=== PATIENT | male | born 1970 | race Caucasian/White ===

== ENCOUNTER → 2019-11-03 | Outpatient (CLI) | payer OTHER ==
--- NOTE | 2019-11-03 16:45 | Diagnostic Imaging Report ---
INDICATION: Cabinet fell on foot 3 weeks ago with more recent trauma to foot 1 week ago.. TECHNIQUE: 3 views of the right foot CORRELATION STUDY: None FINDINGS: The osseous structures of the foot are intact. Joint spaces are maintained. Mild asymmetric hypertrophy lateral sesamoid bone compared to the medial sesamoid bone is Alignment anatomic. Prominent soft tissue edema particularly along the dorsal aspect of foot. Prominent plantar heel spur. IMPRESSION: 1. Negative for acute findings of the foot. Dorsal soft tissue swelling. Dictated by: Dictated on workstation # [id number]
== END ==
LOC: RAD FS 16:22
PROVIDERS: ATTEND Nurse Practitioner Family
DX: S91.331A Puncture wound without foreign body, right foot, initial encounter (principal); W19.XXXA Unspecified fall, initial encounter
CPT/HCPCS: 73630

== ENCOUNTER → 2020-05-10 | Outpatient (CLI) | payer OTHER ==
--- NOTE | 2020-05-10 10:21 | Diagnostic Imaging Report ---
CLINICAL INDICATIONS: Patient has chronic sinusitis. EXAM: Axial CT scan of the maxillofacial structures without IV contrast . Coronal and sagittal reformations were performed. Auto Exposure Controls were utilized during the CT exam to meet ALARA standards for radiation dose reduction. COMPARISON: None. FINDINGS: PARANASAL SINUSES: FRONTAL: Unremarkable. ETHMOID: There is minimal mucosal thickening predominantly on the left side. MAXILLARY: There is minimal mucosal thickening involving both maxillary sinuses. SPHENOID: There is minimal mucosal thickening anteriorly. OTHER PARANASAL SINUS FINDINGS: None. NASAL SEPTUM: Nasal septum is tortuous, demonstrates 4 mm of rightward nasal septal deviation anteriorly and 3 mm leftward nasal septal deviation involving the midportion. There is also a 4 mm leftward directed nasal septal bony spur in the midportion. VISUALIZED TEMPORAL BONE STRUCTURES: Unremarkable. BONY STRUCTURES: There is chronic appearing bony deformity of the nasal bone which is deviated toward the left anteriorly. EXTRACRANIAL SOFT TISSUE/ ORBITS: Unremarkable. IMPRESSION: 1: There is minimal paranasal sinus disease. 2: Tortuous nasal septum is seen including a leftward directed nasal septal bony spur. 3: There is chronic appearing bony deformity involving the nasal bone. Dictated by: Dictated on workstation # [id number]
== END ==
LOC: RAD FS 09:36
PROVIDERS: ATTEND Otolaryngology Otolaryngology/Facial Plastic Surgery
DX: J32.8 Other chronic sinusitis (principal); J34.2 Deviated nasal septum
CPT/HCPCS: 70486

== ENCOUNTER 2020-12-11 09:06 | Emergency (ER) | payer OTHER ==
[~2020-12-11] VITALS: Ht 187.9 cm; Wt 130.6 kg
--- NOTE | 2020-12-11 09:12 | ED Upper Extremity ---
General Chief Complaint: Laceration Stated Complaint: WC LT HAND INJ Source: patient Exam Limitations: no limitations History of Present Illness Date Seen by Provider: Dec 11, 2020 Time Seen by Provider: 09:10 Initial Comments 50 y/o presents with work related injury- left hand crushed in a machine. Pain and cut to back of left hand. Denies other injury. Last tetanus > 5yrs. Allergies and Home Medications Allergies Coded Allergies: erythromycin base (Verified Allergy, Unknown, 12/11/20) Home Medications Amoxicillin 500 Mg Capsule, 500 MG PO TID Prescribed by: MARYLOU GATES on 12/11/20 0955 Hydrocodone/Acetaminophen 1 Each Tablet, 1 EACH PO Q4H PRN for PAIN-MODERATE (5- 7) Prescribed by: MARYLOU GATES on 12/11/20 0956 Ibuprofen 800 Mg Tablet, 800 MG PO Q8H PRN for PAIN Prescribed by: MARYLOU GATES on 12/11/20 0955 Patient Home Medication List Home Medication List Reviewed: Yes Review of Systems Constitutional: No dizziness, No fever, No malaise, No weakness Musculoskeletal: see HPI, other (Pain left hand, cut to back of hand. ) Skin: see HPI, other (laceration left hand) Psychiatric/Neurological: Denies Numbness, Denies Paresthesia Past Hfdmcuv-Tooxeh-Nfllox Hx Patient Social History Tobacco Use?: Yes Alcohol Use?: Yes Physical Exam Vital Signs Vital Signs - First Documented 12/11/20 09:13 Temp 35.2 Pulse 109 Resp 18 B/P (MAP) 167/106 (126) Pulse Ox 95 O2 Delivery Room Air Capillary Refill : Height, Weight, BMI Height: '" Weight: lbs. oz. kg; BMI Method: General Appearance: WD/WN, no apparent distress Back: normal inspection, no CVA tenderness, no vertebral tenderness Shoulder: normal inspection, non-tender, no evidence of injury, normal ROM Elbow/Forearm: normal inspection, non-tender, no evidence of injury, normal ROM, Left Wrist: Yes normal inspection, Yes non-tender, Yes no evidence of injury, Yes normal ROM Hand: Left, bone tenderness, limited ROM (but able to make a fist and fingers align appropriately), soft tissue tenderness, swelling Neurologic/Tendon: normal motor functions, normal tendon functions, responds to pain, no evidence tendon injury Neurologic/Psychiatric: alert, normal mood/affect Skin: normal color, warm/dry, other (laceration dorsum left hand) Procedures/Interventions Wound Location: Upper Extremities Wound Length (cm): 6 Wound's Depth, Shape: irregular, stellate, contused tissue Wound Explored: clean Irrigated w/ Saline (ccs): 200 Anesthesia: 1% Lidocaine Volume Anesthetic (ccs): 8 Wound Debrided: minimal Suture: Monocryl Suture Size: 3-0 Number of Sutures: 8 Sterile Dressing Applied?: Yes Progress manual scrub w wound cleanser and moderate irrigation. No FB or wound contamination observed. Progress/Results/Core Measures Results/Orders My Orders Orders - MARYLOU GATES DO Hand 3 View Left (12/11/20 09:14) Lidocaine 1% Inj 20 Ml (Xylocaine 1% Inj (12/11/20 09:15) Bacitracin Ointment (Bacitracin Ointment (12/11/20 09:15) Dipht,Pertuss(Acell),Tet Adult (Boostrix (12/11/20 09:15) Lidocaine 1% Inj 20 Ml (Xylocaine 1% Inj (12/11/20 09:13) Medications Given in ED Current Medications Medications Dose Ordered Sig/Eliseo Route Start Time Stop Time Status Last Admin Dose Admin Diphtheria/ Tetanus/Acell Pertussis 0.5 ml ONCE ONCE IM 12/11/20 09:15 12/11/20 09:16 DC 12/11/20 09:24 0.5 ML Lidocaine HCl 20 ml ONCE ONCE INJ 12/11/20 09:15 12/11/20 09:16 DC 12/11/20 09:24 5 ML Vital Signs/I&O 12/11/20 09:13 Temp 35.2 Pulse 109 Resp 18 B/P (MAP) 167/106 (126) Pulse Ox 95 O2 Delivery Room Air Diagnostic Imaging Diagonstic Imaging: Xray Plain Films/CT/US/NM/MRI: hand Comments Date of Exam:12/11/20 HAND 3 VIEW LEFT INDICATION: Pain and laceration left hand, injury. TECHNIQUE: Three views of the left hand. CORRELATION STUDY: None FINDINGS: There is normal alignment and appearance of the osseous structures of the hand. The joint spaces are maintained. There is no acute fracture. Findings compatible with previous fracture deformity of the 5th metacarpal. Soft tissue defect, laceration along the dorsal aspect of the hand. No soft tissue foreign body. IMPRESSION: 1. Soft tissue laceration dorsal aspect the hand. No definitive foreign body or acute bony abnormality. Dictated on workstation # [id number] Dict: 12/11/2050 Trans: 12/11/2052 DO [id number] Interpreted by: BELINDA LÓPEZ DO Electronically signed by: Departure Impression Primary Impression: Crush injury of hand Qualified Codes: S67.22XA - Crushing injury of left hand, initial encounter Additional Impression: Laceration of hand Qualified Codes: S61.412A - Laceration without foreign body of left hand, initial encounter Disposition: 01 HOME, SELF-CARE Condition: Improved Departure-Patient Inst. Decision time for Depature: 09:54 Referrals: CLAUDIA WAYNE MD (PCP/Family) Primary Care Physician Patient Instructions: Contusion (DC), Laceration Repair With Stitches (DC) Add. Discharge Instructions: Follow up with Occupational Health/ Worker's Comp clinic in 2 days for wound check and further disposition. Have your stitches removed no sooner than 2 weeks. Elevate and apply ice to your hand several times daily for 15-20 minutes at a time. Seek medical care promptly for any sign of infection: increased pain, redness, swelling or wound drainage All discharge instructions reviewed with patient and/or family. Voiced understanding. Scripts Ibuprofen (Ibuprofen) 800 Mg Tablet 800 MG PO Q8H PRN for PAIN, #30 TAB 0 Refills Prov: MARYLOU GATES DO 12/11/20 Hydrocodone/Acetaminophen (Hydrocodone-Acetamin 5-325 mg) 1 Each Tablet 1 EACH PO Q4H PRN for PAIN-MODERATE (5-7), #10 TAB Prov: MARYLOU GATES DO 12/11/20 Amoxicillin (Amoxicillin) 500 Mg Capsule 500 MG PO TID, #15 CAP 0 Refills Prov: MARYLOU GATES DO 12/11/20 MARYLOU GATES DO Dec 11, 2020 09:12
[2020-12-11 09:13] VITALS: BP 167/106
[2020-12-11] MEDS ORDERED: LIDOCAINE 1% INJ 20 ML 20 ML VIAL ONE (09:13)
[2020-12-11] MEDS ORDERED: TETANUS,DIPTH,PERTUSS P/F (BOOSTRIX) 0.5 ML VIAL IM ONE (09:15)
[2020-12-11] MEDS ORDERED: LIDOCAINE 1% INJ 20 ML 20 ML VIAL INJ ONE (09:15)
[2020-12-11] MEDS ORDERED: BACITRACIN OINTMENT 28 GM TUBE TOP SCH (09:15)
--- NOTE | 2020-12-11 09:52 | Diagnostic Imaging Report ---
INDICATION: Pain and laceration left hand, injury. TECHNIQUE: Three views of the left hand. CORRELATION STUDY: None FINDINGS: There is normal alignment and appearance of the osseous structures of the hand. The joint spaces are maintained. There is no acute fracture. Findings compatible with previous fracture deformity of the 5th metacarpal. Soft tissue defect, laceration along the dorsal aspect of the hand. No soft tissue foreign body. IMPRESSION: 1. Soft tissue laceration dorsal aspect the hand. No definitive foreign body or acute bony abnormality. Dictated by: Dictated on workstation # [id number]
[2020-12-11] MEDS ORDERED: ACHD5005 PO (09:55)
[2020-12-11] MEDS ORDERED: IBUP-1780 PO (09:55)
[2020-12-11] MEDS ORDERED: AMOX500C2 PO (09:55)
--- OUTSIDE RECORDS SUMMARY | 2020-12-11 10:35 | XMS REPORT | Clinical Summary ---
Author Author [facility] Organization [facility] Address Unknown Phone Unavailable Care Team Providers Care Financial Sales Professional Name Role Phone Goyo Srinivasan MD PCP Shayan Pedersen MD Unavailable Source Comments Some departments are not documenting in the electronic medical record. If you d o not see the information that you expected, contact Release of Information in [facility] Health Information Management department at [phone] for further assistan ce in locating additional records.[facility] Allergies Comments Active Allergy Reactions Severity Noted Date Pt states he had a reaction to it as a child. Erythromycin UNKNOWN 07/23/2010 Medications End Date Status Medication Sig Dispensed Refills Start Date Active ESOMEPRAZOLE MAG Take 20 mg by 0 TRIHYDRATE (NEXIUM PO) mouth daily. Active CYCLOBENZAPRINE HCL Take 1 Tab by 0 (FLEXERIL PO) mouth three times daily. Active oxycodone/acetaminophen Take 1-2 Tabs 120 Tab 0 (PERCOCET) 5/325 mg PO by mouth 1 tablet every 4 hours as needed for Pain. Active docusate (COLACE) 100 mg Take 1 Cap by 40 Cap 1 PO capsule mouth twice 1 daily as needed for Constipation. Active hydrocodone/acetaminophen Take 1 Tab by 0 (+) (VICODIN) 10/325 mg mouth every 8 PO tablet hours. Active Testosterone (ANDROGEL) 1 Apply to top 0 % (25 mg/2.5 g) TD GlPk of skin as directed daily. Active ibuprofen (MOTRIN) 800 mg Take 800 mg 0 PO tablet by mouth every 8 hours. Active Problems Not on file Social History Date Tobacco Use Types Packs/Day Years Used Quit: 04/26/2007 Former Smoker Cigarettes 1 12 Smokeless Tobacco: Current User Comments Alcohol Use Standard Drinks/Week Yes 12 (1 standard drink = 0.6 oz pure alcohol) Sex Assigned at Date Recorded Not on file Last Filed Vital Signs Reading Time Taken Comments Vital Sign 139/89 07/24/2010 8:15 AM CDT Blood Pressure 112 07/24/2010 8:15 AM CDT Pulse 36.8 C (98.3 F) 07/24/2010 8:15 AM CDT Temperature - - Respiratory Rate 93% 07/24/2010 8:15 AM CDT Oxygen Saturation - - Inhaled Oxygen Concentration 117.9 kg (260 lb) 07/23/2010 9:22 AM CDT Weight 185.4 cm (6' 1") 07/23/2010 9:22 AM CDT Height 34.3 07/23/2010 9:22 AM CDT Body Mass Index Plan of Treatment Health Maintenance Due Date Last Done Comments HIV SCREENING 07/07/1986 DTAP/TDAP VACCINES (1 - 07/07/1989 Tdap) HEPATITIS C SCREENING 07/07/1989 PHYSICAL (COMPREHENSIVE) 07/07/1989 EXAM INFLUENZA VACCINE 01/24/2021 Results Not on filefrom Last 3 Months Advance Directives Date Inactivated Comments Code Status Date Activated 07/25/2010 5:33 AM Full Code 07/23/2010 5:25 PM Provider has discussed Code Status Yes w/Patient or Family?
== END 2020-12-11 10:00 | disposition home or self-care (01) ==
LOC: EDUNIT# 09:06 → ER FS 09:10
DX: S67.22XA Crushing injury of left hand, initial encounter (principal); S61.412A Laceration without foreign body of left hand, initial encounter; Z23 Encounter for immunization; W23.0XXA Caught, crushed, jammed, or pinched between moving objects, initial encounter
CPT/HCPCS: 12002; 73130; 90715

== ENCOUNTER 2020-12-25 11:16 | Emergency (ER) | payer OTHER ==
[~2020-12-25] VITALS: Ht 182 cm; Wt 100.0 kg
[~2020-12-25 11:16] MED LIST: ACHD5005 PO; AMOX500C2 PO; IBUP-1780 PO
[2020-12-25 11:30] VITALS: BP 132/64
== END 2020-12-25 11:30 | disposition home or self-care (01) ==
LOC: EDUNIT# 11:16 → ER FS 11:18
DX: Z48.02 Encounter for removal of sutures (principal)